=== PATIENT | male | born 1950 | race Caucasian/White ===

== ENCOUNTER 2017-09-04 09:31 | Outpatient (CLI) | payer MEDICARE, OTHER ==
[2017-09-04 10:59] LABS: eGFR (African) > 60; eGFR (Non-African) > 60
== END 2017-09-04 09:32 ==
LOC: LAB 09:31
PROVIDERS: ATTEND Physician Assistant
DX: I10 Essential (primary) hypertension (principal); Z13.6 Encounter for screening for cardiovascular disorders
CPT/HCPCS: 80053; 80061

== ENCOUNTER 2018-01-17 14:23 | Outpatient (CLI) | payer MEDICARE, OTHER ==
[2018-01-17 14:39] LABS: BASOPHILS % 0.7 (0.0-1.5); EOSINOPHILS % 3.6 % (0.0-6.8); MEAN CORPUSCULAR HEMOGLOBIN 31.6 pg (28.0-34.0); MEAN CORPUSCULAR VOLUME 95.6 fl (80.0-100.0); MONOCYTES % 6.1 % (0.0-11.0)
== END 2018-01-17 14:24 ==
LOC: LAB 14:23
PROVIDERS: ATTEND Family Medicine
DX: R53.83 Other fatigue (principal)
CPT/HCPCS: 36415; 84443; 85025

== ENCOUNTER 2018-04-18 10:18 | Day surgery (SDC) | payer MEDICARE, OTHER ==
[~2018-04-18 10:18] MED LIST: LACTATED RINGERS 1,000 ML IV.SOLN IV ONE; PROPOFOL 500 MG/50 ML VIAL IV ONE; SALINE FLUSH 10 ML DISP.SYRIN IVF ONE
--- NOTE | 2018-04-18 14:08 | GI Report ---
REFERRING PHYSICIAN: Dr. Jazmin Moore BELLMAN: Jeffery Amanda MD PROCEDURE MEDICATION: Propofol as per anesthesia. INDICATIONS: This is a 68-year-old man whose mother had colon cancer. He is referred for a screening, high risk. In addition, he states he does have trouble with some heartburn, reflux, and hoarseness. He does have a CPAP and lies flat in bed. He takes a PPI but he is not timing it before the meal. He stopped smoking 3.5 years ago. He is 5 feet 8 inches with central obesity and weighs 88 kilograms. PROCEDURE PERFORMED: Colonoscopy and polypectomy. PROCEDURE: An Olympus video colonoscope was advanced to the rectum. In the rectum, there are a couple of 2 mm hyperplastic polyps that were not removed. Patient has a slightly redundant colon and it took some maneuvering to finally reach the cecum. In the base of the cecum, patient had a 3 mm flat polyp removed with a cold snare. The ileocecal valve is normal. On slow withdrawal, the main part of the cecum, ascending colon, and transverse colon showed no obvious intraluminal lesions noted. The descending colon and sigmoid had some redundancy. No obvious intraluminal lesions were noted. Retroflexion of the rectum shows a couple of 2 mm hyperplastic polyps. Patient tolerated the procedure well. FINDINGS: One polyp removed. RECOMMENDATIONS: 1. Pending the pathology of the polyp, consider re-looking at his colon in 5 years. 2. Increase fiber in the diet. 3. In regards to his reflux, his PPI should be taken 15 to 30 minutes before a meal. If he does not eat breakfast, he can take it before lunch or before the evening meal. 4. Would take an antacid, such as Gaviscon, at bedtime. 5. Elevate the head of the bed about 3 inches. 6. If his symptoms do not improve, an upper evaluation would be a consideration. cc: Dr. Jazmin MERCEDES
== END 2018-04-18 10:20 ==
LOC: OPSURG 10:18
PROVIDERS: ATTEND Internal Medicine Gastroenterology
DX: Z12.11 Encounter for screening for malignant neoplasm of colon (principal); D12.0 Benign neoplasm of cecum; K63.5 Polyp of colon
CPT/HCPCS: 88305; J2704; J7120; 45385; S1016

== ENCOUNTER 2018-09-05 15:36 | Outpatient (CLI) | payer MEDICARE, OTHER ==
[2018-09-05 16:15] LABS: eGFR (Non-African) > 60
== END 2018-09-05 15:41 | disposition home or self-care (01) ==
LOC: LAB 15:36
PROVIDERS: ATTEND Family Medicine
DX: I10 Essential (primary) hypertension (principal)
CPT/HCPCS: 80053; 80061